=== PATIENT | male | born 1965 | race Caucasian/White ===

== ENCOUNTER 2021-05-15 11:37 | Emergency (ER) | payer OTHER ==
[~2021-05-15] VITALS: Ht 160 cm; Wt 57.2 kg
[2021-05-15 11:52] VITALS: BP 96/69
--- NOTE | 2021-05-15 11:56 | NUR ---
PRESLEY. HANDED ON URINE CUP.
--- NOTE | 2021-05-15 14:24 | NUR ---
CALLED PT IN THE LOBBY, NO ANSWER.
--- NOTE | 2021-05-15 14:43 | NUR ---
ATTEMPTED TO CALL PATIENT A 2ND TIME. NO ANSWER.
--- NOTE | 2021-05-15 14:45 | NUR ---
PATIENT LEFT WITHOUT BEING SEEN BY DR. MCKEON. NO FURTHER CARE PROVIDED FOR PATIENT.
== END 2021-05-15 14:24 | disposition left against medical advice (07) ==
LOC: MED 11:37
DX: K62.89 Other specified diseases of anus and rectum (principal); Z53.21 Procedure and treatment not carried out due to patient leaving prior to being seen by health care provider